=== PATIENT | male | born 1990 | race Caucasian/White ===

== ENCOUNTER 2021-08-06 20:52 | Emergency (ER) | payer OTHER, SELFPAY ==
--- NOTE | ~2021-08-06 | XR_ITS ---
EXAMINATION: XR CHEST CLINICAL INFORMATION: Shortness of breath COMPARISON: None TECHNIQUE: 2 views of the chest were obtained. FINDINGS: No significant abnormality is noted involving the heart, lungs, mediastinum, bony thorax or soft tissues. XR/XR chest 2V IMPRESSION: Unremarkable examination.
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
[2021-08-06 22:35] VITALS: BP 112/68; PULSE 60; RESP 18; TEMP 36.8; O2SAT 98; BMI 20.9
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
[2021-08-07] MEDS: Cyclobenzaprine HCl 10 MG TABLET PO (00:19)
[2021-08-07] MEDS: Lidocaine 4 % Patch ADH..PATCH 1 PATCH TRANSDERMA (00:19)
[2021-08-07] MEDS: Ibuprofen 400 MG TABLET PO (00:19)
== END 2021-08-07 04:12 | disposition home or self-care (01) ==
PROVIDERS: Emergency Provider Emergency Medicine; PCP Pediatrics
DX: S29.012A Strain of muscle and tendon of back wall of thorax, initial encounter (principal); S13.4XXA Sprain of ligaments of cervical spine, initial encounter; V43.62XA Car passenger injured in collision with other type car in traffic accident, initial encounter; Y93.89 Activity, other specified; Y92.414 Local residential or business street as the place of occurrence of the external cause; Y99.9 Unspecified external cause status
CPT/HCPCS: 71046; 71250; 72125; 99283; 99284

== ENCOUNTER 2023-01-21 22:37 | Emergency (ER) | payer OTHER, SELFPAY ==
--- NOTE | 2023-01-21 | ECG_ITS ---
Test Reason : CHEST PAIN Blood Pressure : / mmHG Vent. Rate : 087 BPM Atrial Rate : 087 BPM P-R Int : 126 ms QRS Dur : 094 ms QT Int : 328 ms P-R-T Axes : 079 094 066 degrees QTc Int : 394 ms Normal sinus rhythm with sinus arrhythmia Rightward axis Borderline ECG No previous ECGs available Referred By: Generic ED Physician Electronically Signed By:MIRZA COLBERT MD
--- NOTE | ~2023-01-21 | XR_ITS ---
EXAMINATION: XR CHEST CLINICAL INFORMATION: Chest pain COMPARISON: 08/06/2021 TECHNIQUE: 2 views of the chest were obtained. FINDINGS: No significant abnormality is noted involving the heart, lungs, mediastinum, bony thorax or soft tissues. XR/XR chest 2V IMPRESSION: Unremarkable examination.
[2023-01-21 23:00] VITALS: BP 125/84; BP 147/71; PULSE 104; PULSE 93; RESP 18; TEMP 36.8; O2SAT 98; BMI 21.5
[2023-01-21 23:02] LABS: Basophils Percent Auto 0.6 % (0-2); Eosinophils Absolute Auto 0.1 X10*3/uL (0.0-0.4); Hematocrit 43.6 % (42.0-52.0); Hemoglobin 15.3 g/dl (14.0-18.0); Imm Gran Abs Auto 0.03 X10*3/uL (0.00-0.03); Imm Gran Pct Auto 0.5 % (0.0-0.4); Lymphocytes Absolute Auto 2.6 X10*3/uL (1.2-4.9); Lymphocytes Percent Auto 40.2 % (20-40); MANUAL DIFF FLAG NO; Mean Corpuscular HGB Conc 35.1 g/dl (31.0-36.0); Mean Corpuscular Hemoglobin 30.7 pg (27.0-33.0); Mean Corpuscular Volume 87.6 fL (80.0-98.0); Mean Platelet Volume 10.1 fL (9.4-12.4); Monocytes Absolute Auto 0.7 X10*3/uL (0.1-1.2); Monocytes Percent Auto 10.9 % (2-11); Neutrophils Percent Auto 45.8 % (45-73); Platelet Count 283 X10*3/uL (160-400); Red Blood Count 4.98 X10*6/uL (4.60-5.80); Red Cell Distribution Width 11.7 % (11.0-16.0); White Blood Count 6.5 X10*3/uL (4.8-10.8)
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
[2023-01-21 23:15] LABS: Ethanol 233 mg/dL
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
[2023-01-21 23:18] LABS: Alanine Aminotransferase 26 U/L (0-40); Albumin Level 4.6 g/dL (3.5-5.0); Alkaline Phosphatase 68 U/L (39-117); Anion Gap 13 (12-20); Aspartate Amino Transferase 26 U/L (5-37); Bilirubin Total 0.3 mg/dL (0.0-1.0); Blood Urea Nitrogen 10 mg/dL (9-16); Calcium 9.7 mg/dL (8.4-10.2); Carbon Dioxide 27 mmol/L (22-29); Chloride 109 mmol/L (96-108); Creatinine Clr Calc Pharmacy 124.1; Estimated Glomerular Filt Rate > 60; Glucose Random 90 mg/dL (60-115); Potassium 3.6 mmol/L (3.3-5.1); Sodium 145 mmol/L (135-145); Total Protein 7.6 g/dL (6.5-8.0)
[2023-01-22 00:14] LABS: Troponin-I High Sensitivity < 2.7 ng/L (<3.5-35.0)
[2023-01-22] MEDS: Magnesium Hydrox/Alum Hydrox 30 ML ORAL.SUSP PO (00:14)
[2023-01-22] MEDS: Famotidine/PF 20 MG/2 ML VIAL IVPUSH (00:14)
[2023-01-22 01:13] VITALS: BP 136/78; PULSE 76; RESP 18; O2SAT 99
== END 2023-01-22 01:12 | disposition home or self-care (01) ==
PROVIDERS: Emergency Provider Emergency Medicine
DX: K29.20 Alcoholic gastritis without bleeding (principal); F10.90 Alcohol use, unspecified, uncomplicated; Y90.7 Blood alcohol level of 200-239 mg/100 ml
CPT/HCPCS: 36415; 71046; 80053; 80307; 84484; 85025; 93005; 96374; 99284

== ENCOUNTER 2024-08-08 15:06 | Emergency (ER) | payer OTHER, SELFPAY ==
--- NOTE | ~2024-08-08 | US_ITS ---
EXAMINATION: US SCROTUM CLINICAL INFORMATION: Scrotal pain. COMPARISON: None available. TECHNIQUE: A sonogram of the scrotum was performed assessing garcia-scale appearance and color Doppler flow. Spectral Doppler analysis of the arterial and venous flow were performed in the testes bilaterally. FINDINGS: RIGHT: Right testicle measures 4.8 x 2.8 x 2.8 cm, volume 20.4 mL there are small anechoic cyst pole right testes measuring 0.2 x 0.3 x 0.2 cm. No additional lesions seen. Spectral Doppler analysis of the arterial and venous flow normal in the right testis. Right epididymal head is normal in size. There is small epididymal head cyst No right hydrocele or varicocele is seen. Right epididymal Doppler flow is normal. LEFT: Left testicle measures 4.6 x 2.2 x 2.4 cm, volume 12.8 mL. No focal testicular parenchymal lesions are visualized. Spectral Doppler analysis of the arterial and venous flow is normal in the left testis. Left epididymal head is normal in size. There is a small left epididymal head cyst measuring 0.3 x 0.2 x 0.2 cm No left hydrocele is seen. There is prominent varicocele present. Left epididymal Doppler flow is normal. US/US scrotum doppler IMPRESSION: Small right scrotal cyst. Otherwise unremarkable testes. Left epididymal head cyst measuring 0.3 cm. Suspect small left varicocele. Electronically signed by: Saravanan Preston MD 08/08/2024 05:02 PM EDT
--- NOTE | ~2024-08-08 | US_ITS ---
EXAMINATION: US SCROTUM FINDINGS/ US/US scrotum IMPRESSION: Ultrasound scrotum was dictated with ultrasound scrotum with Doppler. Electronically signed by: Saravanan Preston MD 08/09/2024 07:31 AM EDT
[2024-08-08 15:52] VITALS: BP 125/66; PULSE 64; RESP 20; TEMP 36.7; O2SAT 100; BMI 21.7
--- NOTE | 2024-08-08 15:54 | ED.GENADULT ---
HPI - General Adult General Chief complaint: Urogenital-Male Stated complaint: testicular pain/swelling Time Seen by Provider: 08/08/24 16:09 History of Present Illness ED Provider: osmani HPI narrative: 34 M 1 mo L testicle pain now migrated to R. ?swelling. No dysuria, hematuria. Test CA hx in fam. no abd pain prior Appendectomy Related Data Allergies Allergy/AdvReac Type Severity Reaction Status Date / Time No Known Allergies Allergy Verified 08/08/24 15:56 PMFSH Past Medical History Medical History No pertinent past medical history Social History Social History Alcohol intake: current Alcohol type: hard liquor Patient Tobacco Use Status: Never used Tobacco Advance Directives: No Advance Directives Information Provided: No Physical Exam ED Vital Signs: Vital Signs - 24 hr 08/08/24 16:00 08/08/24 16:54 Temperature 9.6 F L 97.6 F Pulse Rate 80 80 Respiratory Rate 17 17 Blood Pressure 140/70 H 140/70 H Pulse Oximetry 100 100 Oxygen Delivery Method Room Air Room Air BMI result Body Mass Index 21.7 Const General: cooperative, healthy appearing, comfortable and no acute distress Penis: normal penis and circumcised Meatus: meatus normal Scrotum: scrotum normal, testes descended bilaterally, no inguinal hernias, no masses and no scrotal swelling Testes: epididymal tenderness (R) Course Course Course Narrative: RME, this is a rapid medical exam performed by Rangel Lance please refer to primary provider for complete H&P- 34 year old male presents for evaluation of scrotal pain that has been ongoing for 2 months but worsening. Plan for labs, UA, ultrasound Medical Decision Making Lab Data 08/08/24 16:05 08/08/24 16:05 Labs: Lab Results 08/08/24 Range/Units 16:05 WBC 7.2 (4.8-10.8) X10*3/uL RBC 4.50 L (4.60-5.80) X10*6/uL Hgb 13.9 L (14.0-18.0) g/dl Hct 39.8 L (42.0-52.0) % MCV 88.4 (80.0-98.0) fL MCH 30.9 (27.0-33.0) pg MCHC 34.9 (31.0-36.0) g/dl RDW 11.6 (11.0-16.0) % Plt Count 231 (160-400) X10*3/uL MPV 10.7 (9.4-12.4) fL Immature Gran % (Auto) 0.3 (0.0-0.4) % Neut % (Auto) 59.8 (45-73) % Lymph % (Auto) 28.6 (20-40) % [place] % (Auto) 9.2 (2-11) % Eos % (Auto) 1.4 (0-4) % Baso % (Auto) 0.7 (0-2) % Lymph # (Auto) 2.1 (1.2-4.9) X10*3/uL [place] # (Auto) 0.7 (0.1-1.2) X10*3/uL Eos # (Auto) 0.1 (0.0-0.4) X10*3/uL Baso # (Auto) 0.1 (0.0-0.2) X10*3/uL Abs Immat Gran (auto) 0.02 (0.00-0.03) X10*3/uL Absolute Neuts (auto) 4.3 (2.0-8.3) x10*3/uL Absolute Nucleated RBC 0.000 (0.0-0.012) X10*3/uL Nucleated RBC % (auto) 0.0 (0.0-0.2) /100WBC Sodium 139 (135-145) mmol/L Potassium 4.1 (3.3-5.1) mmol/L Chloride 105 (96-108) mmol/L Carbon Dioxide 27 (22-29) mmol/L Anion Gap 11 L (12-20) BUN 10 (9-16) mg/dL Creatinine 0.88 (0.5-1.4) mg/dL Estim Creat Clear Calc 99.8 Estimated GFR > 60 Random Glucose 82 (60-115) mg/dL Calcium 9.2 (8.4-10.2) mg/dL Discharge Plan Discharge Clinical Impression: Left varicocele, Cyst, epididymis Patient Disposition: Home, Self-Care Instructions: Scrotal Pain (ED) Additional Instructions: DISCHARGE DIAGNOSES: LEFT VARICOCELE TESTES RIGHT EPIDYDIMAL CYST HISTORY OF PRESENTATION: ?PAIN 1 MONTH LEFT TESTICLE EMERGENCY DEPARTMENT COURSE,TESTS, TREATMENTS: While in the ED today LABS AND ULTRASOUND WERE REASSURING. REVEALED NO EMERGENT SCROTAL ISSUE OR SIGNS TO SUGGEST CANCER. DISCHARGE MEDICATIONS: ?[We have made no changes to your regular medication regimen] FOLLOW-UP: ?Call your primary or general physician soon as possible to discuss your symptoms, your ED visit and to discuss follow up plans CALL UROLOGY TO FOLLOW INSTRUCTIONS ?& RETURN PRECAUTIONS: If any symptoms change first call your primary physician, if it is after-hours your primary doctors office should have a provider environmental scientist you can speak with. If the symptoms are severe or very concerning to you then call 911 or return to the ED. [07] Dez Silva MD Emergency Physician [facility] Referrals: [facility] [Provider Group] (WHEN AVAILABLE) Interventions: ED Discharge Assessment Last Done: 08/08/24 16:54 Discharge Date/Time: 08/08/24 16:57 Print Language: Wolof
[2024-08-08 16:00] VITALS: BP 140/70; PULSE 80; RESP 17; TEMP -12.4; TEMP 9.6; O2SAT 100
[2024-08-08 16:08] LABS: MANUAL DIFF FLAG NO
[2024-08-08 16:19] LABS: Basophils Absolute Auto 0.1 X10*3/uL (0.0-0.2); Basophils Percent Auto 0.7 % (0-2); Eosinophils Absolute Auto 0.1 X10*3/uL (0.0-0.4); Eosinophils Percent Auto 1.4 % (0-4); Hematocrit 39.8 % (42.0-52.0); Hemoglobin 13.9 g/dl (14.0-18.0); Imm Gran Abs Auto 0.02 X10*3/uL (0.00-0.03); Imm Gran Pct Auto 0.3 % (0.0-0.4); Lymphocytes Absolute Auto 2.1 X10*3/uL (1.2-4.9); Lymphocytes Percent Auto 28.6 % (20-40); Mean Corpuscular HGB Conc 34.9 g/dl (31.0-36.0); Mean Corpuscular Hemoglobin 30.9 pg (27.0-33.0); Mean Corpuscular Volume 88.4 fL (80.0-98.0); Mean Platelet Volume 10.7 fL (9.4-12.4); Monocytes Absolute Auto 0.7 X10*3/uL (0.1-1.2); Monocytes Percent Auto 9.2 % (2-11); Neutrophils Absolute Auto 4.3 x10*3/uL (2.0-8.3); Neutrophils Percent Auto 59.8 % (45-73); Platelet Count 231 X10*3/uL (160-400); Red Cell Distribution Width 11.6 % (11.0-16.0); White Blood Count 7.2 X10*3/uL (4.8-10.8)
[2024-08-08 16:20] LABS: Anion Gap 11 (12-20); Blood Urea Nitrogen 10 mg/dL (9-16); Calcium 9.2 mg/dL (8.4-10.2); Carbon Dioxide 27 mmol/L (22-29); Chloride 105 mmol/L (96-108); Creatinine Clr Calc Pharmacy 99.8; Estimated Glomerular Filt Rate > 60; Glucose Random 82 mg/dL (60-115); Potassium 4.1 mmol/L (3.3-5.1); Sodium 139 mmol/L (135-145)
[2024-08-08 16:54] VITALS: BP 140/70; PULSE 80; RESP 17; TEMP 36.4; O2SAT 100
--- OUTSIDE RECORDS SUMMARY | 2024-08-08 18:14 | XMS_ITS | Clinical Summary ---
Author Organization [facility] ity Address [address] [place] [address] Care Team Providers Care Patent Drafter Name Role Phone Kranthi Hatch MD Primary Care Provider [phone] Allergies No known active allergies Medications oxyCODONE (ROXICODONE) 5 mg immediate release tablet Take 5 mg by mouth every 4 hours as needed. Rx by er Active Active Problems Problem Noted Date Diagnosed Date Tobacco use disorder 09/04/2012 Immunizations Name Administration Dates Next Due Influenza Quadravalent, MDCK , 0.5ml, preservative free (Flucelvax) 6mo and older 10/31/2017 Tdap Tetanus diptheria acell ular pertussis (Boostrix; Adacel) 7yo and older 06/04/2012 Surgical History Surgery Date Site/Laterality Comments APPENDECTOMY PROCEDURE: HISTORICAL APPENDECTOMY Medical History Medical History Date Comments Patient denies medical problems DX:Patient denies medical problems Family History Medical History Relation Name Comments Diabetes Father Breast cancer Maternal Grandmother Asthma Mother Depression, anx iety, irregular heartbeat Other cancer Paternal Grandfather Unknown location Relation Name Status Comments Father Maternal Grandmother Mother Paternal Grandfather Social History Tobacco Use Types Packs/Day Years Used Date Smoking Tobacco: Former Smokeless Tobacco: Never Alcohol Use Standard Drinks/Week Comments Yes 0 (1 standard drink = 0.6 oz pur e alcohol) Sex and Gender Information Value Date Recorded Sex Assigned at Not on file Legal Sex Male 4:35 PM EST Gender Identity Not on file Sexual Orientation Not on file Obstetrics History Plan of Treatment Health Maintenance Due Date Last Done Comments Hepatitis B Vaccines (1 of 3 - 19+ 3-dose series) 2010 Depression Screening 01/26/2022 Social Influencers of Health Screening 01/26/2022 DTaP,Tdap,and Td Vaccines (2 - Td or Tdap) 06/04/2022 06/04/2012 COVID-19 Vaccine (1 - 2023-2 5 season) 2023 Influenza Vaccine (Season Ended) 2024 11/01/19 HIV Screening Completed 08/15/2017 Hepatitis C Screening Completed 08/15/2017 HIB Vaccines Aged Out No longer eligi ble based on patient's age to complete this topic HPV Vaccines Aged Out No longer eligi ble based on patient's age to complete this topic Hepatitis A Vaccines Aged Out No long er eligible based on patient's age to complete this topic IPV Vaccines Aged Out No longer eligi ble based on patient's age to complete this topic MMR Vaccines Aged Out No longer eligi ble based on patient's age to complete this topic Meningococcal ACWY Vaccine Aged Out N o longer eligible based on patient's age to complete this topic Meningococcal B Vaccine Aged Out No l onger eligible based on patient's age to complete this topic Pneumococcal Vaccine: Pediat rics (0 to 5 Years) and At-Risk Patients (6 to 64 Years) Aged Out No longer eligi ble based on patient's age to complete this topic RSV Immunization Patients Un jewel 20 months Aged Out No longer eligible b ased on patient's age to complete this topic Varicella Vaccines Aged Out No longer eligible based on patient's age to complete this topic Procedures Procedure Name Priority Date/Time Associated Diagnosis Comments HEPATITIS C SCREENING Routine 08/15/2017 HIV SCREENING Routine 08/15/2017 from Last 3 Months or Most Recently Relevant to Health Maintenance Results * HIV Screening (08/15/2017) HIV Screening abstracted us Historical Provider HEALTH MAINTENANCE Final Result * Hepatitis C Screening (08/15/2017) Hepatitis C Screening abstracted us Historical Provider HEALTH MAINTENANCE Final Result from Last 3 Months or Most Recently Relevant to Health Maintenance Care Teams Patent Drafter Relationship Specialty Start Date End Date Kranthi Hatch MD [address] [place] [id number] PCP - General Internal Medicine 06/20/12
== END 2024-08-08 16:57 | disposition home or self-care (01) ==
PROVIDERS: Physician Assistant; Emergency Provider Emergency Medicine
DX: N50.812 Left testicular pain (principal); I86.1 Scrotal varices; N45.1 Epididymitis; Z79.899 Other long term (current) drug therapy
CPT/HCPCS: 36415; 76870; 80048; 85025; 93975; 99283; 99284

== ENCOUNTER → 2024-08-08 15:54 | Outpatient (BNV) | payer OTHER, SELFPAY | PROVIDERS: Emergency Provider Emergency Medicine; Visit Provider Radiology Diagnostic Radiology | DX: N50.82 Scrotal pain (principal) | CPT/HCPCS: 93975 ==

== ENCOUNTER 2024-10-12 15:51 | Emergency (ER) | payer OTHER, SELFPAY ==
[2024-10-12 15:57] VITALS: BP 121/75; PULSE 76; RESP 16; TEMP 36.4; O2SAT 100; BMI 21.8
--- NOTE | 2024-10-12 15:58 | ED.ABDPAIN ---
HPI - Abdominal Pain General Chief Complaint: General Medical Stated Complaint: rectal pain/bleeding Time Seen by Provider: 10/12/24 20:23 Source: patient Limitations: no limitations History of Present Illness HPI narrative: 34-year-old male who denies significant past medical history presents for evaluation of rectal pain over the past 2-3 days. Patient states that he noticed a tender area which has progressively worsened. He denies any history of similar symptoms. He does report doing heavy lifting and strenuous activity for work. He also reports some straining with bowel movements. He denies any constipation. No diarrhea. No hematochezia or melena. He does report having some bright red blood with wiping. He denies any aspirin or NSAID use. No anticoagulant use. He does report discomfort with sitting. He denies any abdominal pain. No fevers chills nausea or vomiting. No difficulty urinating. No history of GI malignancy. He is otherwise feeling well. Related Data Previous Rx's ?Medication ?Instructions ?Recorded hydrocortisone 2.5 % topical cream 1 appl OK BID PRN hemorrhoids #30 10/12/24 with perineal applicator grams (Anusol-HC) polyethylene glycol 3350 17 17 g PO DAILY #119 grams 10/12/24 gram/dose oral powder (Miralax) Allergies Allergy/AdvReac Type Severity Reaction Status Date / Time No Known Allergies Allergy Verified 10/12/24 16:00 Review of Systems Constitutional: Denies chills and Denies fever(s) Cardiovascular: Denies chest pain, Denies dyspnea, Denies dyspnea on exertion and Denies orthopnea Respiratory: Denies cough, Denies dyspnea and Denies dyspnea on exertion Gastrointestinal: Denies abdominal pain, Denies melena, Denies hematochezia, Denies constipation, Denies GI cramping, Denies diarrhea, Denies nausea and Denies vomiting Genitourinary: Denies difficulty urinating, Denies dysuria and Denies urinary urgency Musculoskeletal: Denies back pain and Denies muscle weakness Skin/Breast: Denies rash PMFSH Past Medical History Medical History No pertinent past medical history Social History Social History Alcohol intake: current Alcohol type: hard liquor Patient Tobacco Use Status: Never used Tobacco Advance Directives: No Advance Directives Information Provided: No Physical Exam ED Vital Signs: Vital Signs - 24 hr 10/12/24 15:57 10/12/24 20:12 10/12/24 21:25 Temperature 97.6 F 97.8 F 97.8 F Pulse Rate 76 73 73 Respiratory Rate 16 18 18 Blood Pressure 121/75 122/76 122/76 Pulse Oximetry 100 100 100 Oxygen Delivery Method Room Air Room Air Room Air BMI result Body Mass Index 21.8 Resp Other: Lung sounds clear throughout Cardio Other: Regular rate and rhythm GI Other: Abdomen is soft and nontender. No peritoneal signs. No CVAT Other: Rectal exam demonstrates a 1 cm non thrombosed hemorrhoid at the 3 o'clock position. There was no erythema discharge or bleeding. Patient unable to tolerate rectal exam. No perianal erythema fluctuance or induration. Course Course Course Narrative: Smiley Catherine [employer] 10/12 5637 This is a rapid medical exam. Deferred additional HPI, ROS, PE to primary provider. 34 yo male with no known medical history here with complaints of rectal bleeding noticed with wiping after having a bowel movement x 2 days. Feels like he has rectal swelling, difficult to sit down. Unable to visualize area in triage. VSS Medical Decision Making Medical Decision Making MDM Narrative: 33-year-old male with rectal pain over the past 2-3 days consistent with acute hemorrhoid. Patient is hemodynamically stable. He is not having any active bleeding or melena. He is not having any systemic symptoms, no abdominal pain, no lightheadedness or dizziness to suggest anemia or intra-abdominal process. No family history of GI malignancy. Symptomatic treatment and follow up with PCP and GI referral. Patient expresses understanding of all discharge instructions and has no further questions at this time Differential Diagnosis Differential Diagnoses: The differential diagnosis associated with the presentation includes Abscess External hemorrhoid Thrombosed hemorrhoid Rectal prolapse Discharge Plan Discharge Clinical Impression: Hemorrhoid Qualifiers: Hemorrhoid type: unspecified Qualified Code(s): K64.9 - Unspecified hemorrhoids Patient Disposition: Home, Self-Care Instructions: Hemorrhoids (ED), Sitz Bath (DC) Additional Instructions: Rest. Avoid strenuous activity. Drink plenty of fluids. Avoid straining while moving your bowels. MiraLax as directed to help move your bowels. Hydrocortisone cream applied to the affected area. You may also use [id number] medications such as preparation H. Follow up with GI referral. Follow-up with your primary care provider. Call this week to schedule a follow-up appointment. Return to the emergency department if you have any worsening of symptoms, or any concerns. Get well soon! Prescriptions: New hydrocortisone [Anusol-HC] 2.5 % cream with perineal applicator 1 appl OK BID PRN (Reason: hemorrhoids) Qty: 30 0RF polyethylene glycol 3350 [Miralax] 17 gram/dose powder 17 g PO DAILY Qty: 119 0RF Referrals: Erum Andino MD [Physician, Gastroenterology] Stand Alone Forms: Work/School Release Interventions: ED Discharge Assessment Last Done: 10/12/24 21:25 Discharge Date/Time: 10/12/24 21:25 Print Language: Serbian
[2024-10-12 20:12] VITALS: BP 122/76; PULSE 73; RESP 18; TEMP 36.6; O2SAT 100
[2024-10-12 21:25] VITALS: BP 122/76; PULSE 73; RESP 18; TEMP 36.6; O2SAT 100
== END 2024-10-12 21:25 | disposition home or self-care (01) ==
PROVIDERS: Emergency Provider Emergency Medicine
DX: K64.9 Unspecified hemorrhoids (principal)
CPT/HCPCS: 99283; 99284